=== PATIENT | female | born 1945 | race Caucasian/White ===

== ENCOUNTER → 2018-07-12 | Outpatient (CLI) | payer MEDICARE, MEDICAID ==
[~2018-07-12] VITALS: Ht 160 cm; Wt 74.0 kg
[~2018-07-12] MED LIST: BACL10TA PO; ENAL20TA PO; MONT10TA21 PO; SYMB8060 IH; TIOT185 IH; UMEC62.5 PO
[2018-07-12 11:06] VITALS: BP 112/67
== END | disposition home or self-care (01) ==
LOC: SRCNTR 10:34
PROVIDERS: ATTEND Internal Medicine
DX: J44.9 Chronic obstructive pulmonary disease, unspecified (principal); I10 Essential (primary) hypertension; Z79.891 Long term (current) use of opiate analgesic
CPT/HCPCS: G0463

== ENCOUNTER → 2018-08-08 | Outpatient (CLI) | payer MEDICARE, MEDICAID ==
[~2018-08-08] VITALS: Ht 160 cm; Wt 75.0 kg
[~2018-08-08] MED LIST changes: +BECL10.62 IH
[2018-08-08 10:45] VITALS: BP 135/77
== END | disposition home or self-care (01) ==
LOC: SRCNTR 10:43
PROVIDERS: ATTEND Internal Medicine
DX: I10 Essential (primary) hypertension (principal); Z87.891 Personal history of nicotine dependence
CPT/HCPCS: G0463

== ENCOUNTER → 2019-05-29 | Outpatient (CLI) | payer MEDICARE, OTHER ==
[~2019-05-29] VITALS: Ht 160 cm; Wt 70.0 kg
[~2019-05-29] MED LIST changes: -UMEC62.5 PO
[2019-05-29 11:58] VITALS: BP 135/83
== END | disposition home or self-care (01) ==
LOC: SRCNTR 11:54
PROVIDERS: ATTEND Internal Medicine
DX: J47.1 Bronchiectasis with (acute) exacerbation (principal); R09.02 Hypoxemia
CPT/HCPCS: G0463

== ENCOUNTER → 2020-01-29 | Outpatient (CLI) | payer MEDICARE, OTHER | END | disposition home or self-care (01) | LOC: SRCNTR 11:13 | PROVIDERS: ATTEND Internal Medicine | DX: J44.9 Chronic obstructive pulmonary disease, unspecified (principal); I10 Essential (primary) hypertension; R09.02 Hypoxemia; Z87.891 Personal history of nicotine dependence | CPT/HCPCS: Q3014 ==

== ENCOUNTER → 2022-04-27 | Outpatient (CLI) | payer MEDICARE, OTHER ==
[~2022-04-27] MED LIST changes: -ENAL20TA PO; +ENAL20TA18 PO; +MONT-35 PO; -MONT10TA21 PO
[2022-04-27 11:28] VITALS: BP 140/87
== END | disposition home or self-care (01) ==
LOC: SRCNTR 10:50
PROVIDERS: ATTEND Internal Medicine
DX: I10 Essential (primary) hypertension (principal); J44.9 Chronic obstructive pulmonary disease, unspecified; C34.91 Malignant neoplasm of unspecified part of right bronchus or lung; R09.02 Hypoxemia; F17.200 Nicotine dependence, unspecified, uncomplicated
CPT/HCPCS: G0463

== ENCOUNTER → 2023-02-17 | Outpatient (CLI) | payer MEDICARE, OTHER ==
[~2023-02-17] VITALS: Ht 152.4 cm; Wt 79.0 kg
[~2023-02-17] MED LIST changes: +ALBU18HF12 IH; +ENAL-92 PO; -ENAL20TA18 PO; +IPRA3AMP24 NEB
[2023-02-17 11:20] VITALS: BP 115/71; PULSE 76; RESP 20; TEMP 98.4; O2SAT 96
== END | disposition home or self-care (01) ==
LOC: SRCNTR 11:05
PROVIDERS: ATTEND Internal Medicine
DX: J44.9 Chronic obstructive pulmonary disease, unspecified (principal); R09.02 Hypoxemia; I10 Essential (primary) hypertension; C34.91 Malignant neoplasm of unspecified part of right bronchus or lung; Z87.891 Personal history of nicotine dependence
CPT/HCPCS: G0463

== ENCOUNTER → 2023-10-13 | Outpatient (CLI) | payer MEDICARE, OTHER ==
[~2023-10-13] VITALS: Ht 152.4 cm; Wt 79.0 kg
[~2023-10-13] MED LIST changes: -BACL10TA PO; -SYMB8060 IH
[2023-10-13 10:27] VITALS: BP 144/86; PULSE 81; RESP 17; TEMP 98.1; O2SAT 95
== END | disposition home or self-care (01) ==
LOC: SRCNTR 10:18
PROVIDERS: ATTEND Internal Medicine
DX: J44.9 Chronic obstructive pulmonary disease, unspecified (principal); J47.9 Bronchiectasis, uncomplicated; I10 Essential (primary) hypertension; R09.02 Hypoxemia; Z87.891 Personal history of nicotine dependence
CPT/HCPCS: G0463